=== PATIENT | male | born 1960 | race African-American/Black ===

== ENCOUNTER 2022-09-16 11:46 | Outpatient (REF) | payer OTHER, SELFPAY ==
--- NOTE | ~2022-09-16 | XR_ITS ---
EXAMINATION: XR TIBIA AND FIBULA, RIGHT CLINICAL INFORMATION: Injury. COMPARISON: None available. TECHNIQUE: AP and lateral views of the right tibia and fibula were obtained. FINDINGS: Bone alignment is normal. No fracture or dislocation. The joint spaces are normal. Soft tissue swelling over the distal anterior lateral lower leg. No soft tissue foreign body seen. XR/XR tibia fibula RT 2V IMPRESSION: No fracture or foreign body.
== END 2022-09-16 11:47 | disposition home or self-care (01) ==
LOC: HO.HMGCX 11:46
PROVIDERS: Visit Provider Physician Assistant
DX: S89.91XA Unspecified injury of right lower leg, initial encounter (principal)
CPT/HCPCS: 73590